=== PATIENT | female | born 1940 | race Caucasian/White ===

== ENCOUNTER 2017-11-26 09:24 | Outpatient (CLI) | payer OTHER | END 2017-11-26 09:28 | disposition home or self-care (01) | LOC: RAD 09:24 | DX: M70.62 Trochanteric bursitis, left hip (principal) ==

== ENCOUNTER 2018-05-23 12:58 | Outpatient (CLI) | payer OTHER | END 2018-05-23 13:18 | disposition home or self-care (01) | LOC: RAD 12:58 | DX: Z12.31 Encounter for screening mammogram for malignant neoplasm of breast (principal); Z87.898 Personal history of other specified conditions; N64.89 Other specified disorders of breast; M54.2 Cervicalgia; M17.0 Bilateral primary osteoarthritis of knee ==

== ENCOUNTER → 2018-05-23 | Outpatient (CLI) | payer OTHER | END | disposition home or self-care (01) | LOC: NUCLEAR 14:24 | DX: M81.0 Age-related osteoporosis without current pathological fracture (principal) ==

== ENCOUNTER 2018-06-07 07:34 | Outpatient (CLI) | payer OTHER | END 2018-06-07 08:30 | disposition home or self-care (01) | LOC: NUCLEAR 07:34 | DX: I65.23 Occlusion and stenosis of bilateral carotid arteries (principal) ==

== ENCOUNTER 2018-09-09 11:01 | Emergency (ER) | payer OTHER ==
[~2018-09-09] VITALS: Ht 160 cm; Wt 63.5 kg
[2018-09-09] MEDS ORDERED: TIROSINT50 MCG (11:16)
[2018-09-09] MEDS ORDERED: NORVASC2.5 MG (11:16)
== END 2018-09-09 14:20 | disposition home or self-care (01) ==
LOC: ER 11:01
DX: S63.592A Other specified sprain of left wrist, initial encounter (principal); W18.09XA Striking against other object with subsequent fall, initial encounter; Y93.89 Activity, other specified; Y92.89 Other specified places as the place of occurrence of the external cause; Y99.8 Other external cause status

== ENCOUNTER 2020-06-02 08:40 | Outpatient (CLI) | payer OTHER ==
[~2020-06-02 08:40] MED LIST: NORVASC2.5 MG; TIROSINT50 MCG
== END 2020-06-02 08:49 | disposition home or self-care (01) ==
LOC: MAMO-SONO 08:40
PROVIDERS: ATTEND Family Medicine
DX: Z12.31 Encounter for screening mammogram for malignant neoplasm of breast (principal); Z87.898 Personal history of other specified conditions; N60.11 Diffuse cystic mastopathy of right breast; N60.12 Diffuse cystic mastopathy of left breast

== ENCOUNTER 2020-06-02 09:48 | Outpatient (CLI) | payer OTHER | END 2020-06-02 10:05 | disposition home or self-care (01) | LOC: NUCLEAR 09:48 | PROVIDERS: ATTEND Family Medicine | DX: I83.12 Varicose veins of left lower extremity with inflammation (principal) ==

== ENCOUNTER 2020-06-08 08:24 | Outpatient (CLI) | payer OTHER | END 2020-06-08 08:30 | disposition home or self-care (01) | LOC: NUCLEAR 08:24 | PROVIDERS: ATTEND Family Medicine | DX: M81.0 Age-related osteoporosis without current pathological fracture (principal) ==

== ENCOUNTER 2022-05-15 08:32 | Outpatient (CLI) | payer OTHER | END 2022-05-15 08:33 | disposition home or self-care (01) | LOC: NUCLEAR 08:32 | PROVIDERS: ATTEND Family Medicine | DX: I65.23 Occlusion and stenosis of bilateral carotid arteries (principal) ==

== ENCOUNTER 2022-05-16 07:41 | Outpatient (CLI) | payer OTHER | END 2022-05-16 07:42 | disposition home or self-care (01) | LOC: NUCLEAR 07:41 | PROVIDERS: ATTEND Family Medicine | DX: I87.2 Venous insufficiency (chronic) (peripheral) (principal) ==

== ENCOUNTER 2022-06-09 13:02 | Outpatient (CLI) | payer OTHER | END 2022-06-09 13:04 | disposition home or self-care (01) | LOC: NUCLEAR 13:02 | PROVIDERS: ATTEND Family Medicine | DX: M81.0 Age-related osteoporosis without current pathological fracture (principal) ==

== ENCOUNTER 2022-07-13 14:16 | Inpatient (IN) | payer OTHER ==
[~2022-07-13] VITALS: Ht 162.6 cm; Wt 68.0 kg
--- NOTE | 2022-07-13 14:20 | NUR ---
SE RECIBE PTE ALERTA Y ORIENTADADO X3 PTE REFIERE TENER DOLOR ABDOMINAL DESDE HACE VARIOS RODRIGUEZ, SE GUERO VITALES Y SE RO EN CRUZ DE ESPERA.
--- NOTE | 2022-07-13 15:22 | NUR ---
PTE FEMENINA EVALUADA POR . SE ORIENTA SOBRE ORDENES DE [place] REFIERE COMPRENDER. SE COLECTAN MUESTRAS DE LABORATORIOS Y SE CANALIZA VENA BAJO MEDIDAS ASEPTICAS. SE ADMINISTRAN MEDICAMENTOS, BAJO MEDIDAS ASEPTICAS.PTE MANEJADA POR DANII WOODALL.
== END 2022-07-22 11:29 | disposition home or self-care (01) | DRG 336 ==
LOC: ER 14:16 → MEDI 20:03
PROVIDERS: Specialist; ADMIT Internal Medicine; ATTEND Internal Medicine
PROC: BW21ZZZ Computerized Tomography (CT Scan) of Abdomen and Pelvis (ICD-10-PCS; 2022-07-13)
PROC: 02HV33Z Insertion of Infusion Device into Superior Vena Cava, Percutaneous Approach (ICD-10-PCS; 2022-07-16)
PROC: CD171ZZ Planar Nuclear Medicine Imaging of Gastrointestinal Tract using Technetium 99m (Tc-99m) (ICD-10-PCS; 2022-07-16)
PROC: 0DNW4ZZ Release Peritoneum, Percutaneous Endoscopic Approach (ICD-10-PCS; principal; 2022-07-18 18:00)
DX: K56.50 Intestinal adhesions [bands], unspecified as to partial versus complete obstruction (principal); N17.9 Acute kidney failure, unspecified; E87.6 Hypokalemia; E03.9 Hypothyroidism, unspecified; I10 Essential (primary) hypertension; Z20.822 Contact with and (suspected) exposure to COVID-19

== ENCOUNTER 2022-12-27 08:20 | Outpatient (CLI) | payer OTHER | END 2022-12-27 08:26 | disposition home or self-care (01) | LOC: RAD 08:20 | PROVIDERS: ATTEND Podiatrist Foot Surgery | DX: M77.41 Metatarsalgia, right foot (principal); M77.42 Metatarsalgia, left foot ==

== ENCOUNTER 2023-12-31 10:44 | Outpatient (CLI) | payer OTHER | END 2023-12-31 10:50 | disposition home or self-care (01) | LOC: RAD 10:44 | PROVIDERS: ATTEND Family Medicine | DX: J20.9 Acute bronchitis, unspecified (principal) ==

== ENCOUNTER 2024-03-06 09:14 | Outpatient (CLI) | payer OTHER | END 2024-03-06 09:21 | disposition home or self-care (01) | LOC: TOM 09:14 | PROVIDERS: ATTEND Internal Medicine | DX: I63.011 Cerebral infarction due to thrombosis of right vertebral artery (principal) ==

== ENCOUNTER 2024-08-12 11:16 | Outpatient (CLI) | payer OTHER | END 2024-08-12 11:31 | disposition home or self-care (01) | LOC: MRI 11:16 | PROVIDERS: ATTEND Surgery | DX: M54.16 Radiculopathy, lumbar region (principal); M25.559 Pain in unspecified hip | CPT/HCPCS: 72148 ==

== ENCOUNTER 2025-01-20 10:33 | Outpatient (CLI) | payer OTHER | END 2025-01-20 10:36 | disposition home or self-care (01) | LOC: RAD 10:33 | PROVIDERS: ATTEND Physical Medicine & Rehabilitation | DX: M79.652 Pain in left thigh (principal) ==

== ENCOUNTER 2025-02-02 08:10 | Outpatient (CLI) | payer OTHER | END 2025-02-02 08:19 | disposition home or self-care (01) | LOC: MRI 08:10 | PROVIDERS: ATTEND Internal Medicine | DX: I63.539 Cerebral infarction due to unspecified occlusion or stenosis of unspecified posterior cerebral artery (principal) | CPT/HCPCS: 70551 ==

== ENCOUNTER 2025-02-09 07:18 | Outpatient (CLI) | payer OTHER | END 2025-02-09 07:21 | disposition home or self-care (01) | LOC: SONOGRAMA 07:18 | PROVIDERS: ATTEND Internal Medicine | DX: R10.9 Unspecified abdominal pain (principal) ==